=== PATIENT | female | born 1995 | race Caucasian/White ===

== ENCOUNTER 2020-07-18 06:53 | Emergency (ER) | payer OTHER ==
[~2020-07-18] VITALS: Ht 180.3 cm; Wt 113.4 kg
[2020-07-18] MEDS ORDERED: LOVENOX150 MG SUB-Q (07:23)
[2020-07-18] MEDS ORDERED: REMERON15 MG PO (07:24)
[2020-07-18] MEDS ORDERED: IBU800 MG PO (07:25)
--- OUTSIDE RECORDS SUMMARY | 2020-07-18 09:52 | XMS ---
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 Kaylynn VISIT COUNT (12 MO.) 1 [facility] 1 [facility] 3 [place] [address] SONNY Brady TOTAL 6 NOTE: Visits indicate total known visits. ED/UCC VISIT TRACKING (12 MO.) 07/18/2020 06:53 [facility] [place] TYPE: Emergency COMPLAINT: - BILAT LEG SWELLING 07/17/2020 07:40 [facility] TYPE: Emergency DIAGNOSES: - Cystitis, unspecified without hematuria - Unspecified severe protein-calorie malnutrition - Other disorders of plasma-protein metabolism, not elsewhere c - BILATERAL LEG SWELLING AND PAIN 02/01/2020 14:28 [facility] TYPE: Emergency DIAGNOSES: - Cutaneous abscess of left upper limb - Abscess 11/14/2019 23:11 [facility] TYPE: Emergency DIAGNOSES: - Newly /Tested, Cramping - Possible - Less than 8 weeks gestation of - Other diseases of the blood and blood-forming organs and cert - Activated protein C resistance 10/18/2019 21:15 [facility] [place] [facility] TYPE: Emergency DIAGNOSES: - Dysuria - Acute cystitis with hematuria - blood in urine 09/19/2019 21:00 [facility] [place] [facility] TYPE: Emergency DIAGNOSES: - Drug / Alcohol Assessment - THC screening - Encounter for blood-alcohol and blood-drug test INPATIENT VISIT TRACKING (12 MO.) 06/27/2020 15:56 [facility] TYPE: Obstetrics DIAGNOSES: - Drug use complicating the puerperium - Encounter for full-term uncomplicated delivery - Other psychoactive substance dependence, uncomplicated - Supervision of high risk , unspecified, second trime - Drug use complicating , unspecified trimester - Activated protein C resistance - Substance use during ...EDC 07/16/2020 - Opioid dependence, uncomplicated - Substance Abuse 02/15/2020 12:07 Janette Siddiqi [facility] TYPE: Chemical Dependency DIAGNOSES: - Activated protein C resistance - Other psychoactive substance dependence, uncomplicated - Cutaneous abscess, unspecified - Opioid dependence, uncomplicated - Drug use complicating , unspecified trimester - Supervision of high risk , unspecified, second trime [email or web address]
== END 2020-07-18 09:34 | disposition home or self-care (01) ==
LOC: ED 06:53
DX: R60.0 Localized edema (principal); Z79.899 Other long term (current) drug therapy
CPT/HCPCS: 36415; 80053; 81001; 85025; 93970; 99284-25

== ENCOUNTER 2022-05-01 21:26 | Emergency (ER) | payer OTHER ==
[~2022-05-01] VITALS: Ht 180.3 cm; Wt 133.0 kg
[~2022-05-01 21:26] MED LIST: IBU800 MG PO; LOVENOX150 MG SUB-Q; REMERON15 MG PO
--- OUTSIDE RECORDS SUMMARY | 2022-05-01 21:30 | XMS ---
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 No recent Security Events currently on file CRITERIA MET - 6 ED Visits in 6 Months - [facility] - 2 Visits in 30 Days CARE PROVIDERS MEDICINE, [facility] Family Medicine Current [facility] FAM[facility] PHONE: [phone] PCPHANSA News Specialist/Diesel Bus Mechanic Current PHONE: [phone] IDALMIS BAKER Installation & Maintenance Executive 07/09/2019-Current PHONE: [phone] JERILYN LAU Nurse Practitioner: Family Current PHONE: [phone] [facility] Current PHONE: Unknown MARIANN PERERA [facility] Current PHONE: [phone] [facility] Specialist Current PC PHONE: [phone] TERRENCE RUBIO [facility] Current PHONE: Unknown Marshal has no Care Guidelines for this patient. ELovely VISIT COUNT (12 MO.) 7 [facility] 1 SONNY [place]gu[place] TOTAL 8 NOTE: Visits indicate total known visits. ED/UCC VISIT TRACKING (12 MO.) 05/01/2022 21:28 [facility] [place] [facility]: Emergency COMPLAINT: - REDNESS,BRUISING,SWELLING EXTREMITIES 04/28/2022 08:12 [facility] [place] TYPE: Emergency DIAGNOSES: - Unspecified abdominal pain - Other microscopic hematuria - BACK PAIN RADIATES TO FRONT RIB CAGE 04/13/2022 11:49 [facility] [place] TYPE: Emergency DIAGNOSES: - CHEST PAIN - Nontoxic single thyroid nodule - Other chest pain - Other specified soft tissue disorders - Solitary pulmonary nodule 04/06/2022 11:25 [facility] [place] TYPE: Emergency DIAGNOSES: - swelling in both legs - Generalized enlarged lymph nodes 03/26/2022 14:48 [facility] [place] TYPE: Emergency DIAGNOSES: - Cellulitis of left upper limb - POSSIBLE INFECTION 03/10/2022 08:29 [facility] [place] TYPE: Emergency DIAGNOSES: - LEFT ARM WOUND CHECK SWELLING DOWN TO HAND - Cellulitis of unspecified part of limb 03/08/2022 11:41 [facility] [place] TYPE: Emergency DIAGNOSES: - abscess - Cellulitis of right upper limb - Cellulitis of left upper limb 11/04/2021 14:59 [facility] [place] TYPE: Emergency DIAGNOSES: - Dysuria - POSS UTI INPATIENT VISIT TRACKING (12 MO.) No inpatient visits to display in this time frame [email or web address]
[2022-05-01] MEDS ORDERED: LOVENOX40 MG/0.4 SUB-Q ×2 (22:15→22:34)
== END 2022-05-01 22:44 | disposition home or self-care (01) ==
LOC: ED 21:26
DX: D68.2 Hereditary deficiency of other clotting factors (principal); Z79.899 Other long term (current) drug therapy
CPT/HCPCS: J1650